=== PATIENT | male | born 1970 | race Caucasian/White ===

== ENCOUNTER 2016-12-31 10:20 | Emergency (ER) | payer OTHER ==
[~2016-12-31] VITALS: Ht 190.5 cm; Wt 113.4 kg
[~2016-12-31 10:20] MED LIST: AMLODIPINE BESY10 MG PO; Aspirin PO; BYSTOLIC10 MG PO; DOCUSATE SODIU100 MG PO; NEXIUM 40MG40 MG PO; PERCOCET 325 MG1 TA2 PO; POLYTRIM O200 GTT/BO OPH; VALIUM5 M1 PO; VICODIN5-300 PO
--- NOTE | 2016-12-31 11:06 | ED GI/GU/ABDOMINAL COMPLAINT ---
History of Present Illness General Chief Complaint: Abdominal Pain/Flank Pain Stated Complaint: "PER CONSITPATED" Source: patient, family, old records Exam Limitations: no limitations Vital Signs & Intake/Output Vital Signs & Intake/Output Vital Signs Date Time Temp Pulse Resp B/P B/P Pulse O2 O2 Flow FiO2 Mean Ox Delivery Rate 12/31 1328 97.8 63 16 128/68 97 Room Air 12/31 1028 98.3 73 16 131/83 98 Room Air Room Air Allergies Coded Allergies: No Known Allergies (12/31/16) Reconcile Medications Amlodipine Besylate 10 MG TABLET 0.5 TAB PO DAILY BP (Reported) Diazepam (Valium) 5 MG TABLET 1 TAB PO TID PRN Spasms Esomeprazole (Nexium) 40 MG CAPSULE.DR 1 TAB PO DAILY GI (Reported) HYDROCODONE/ACETAMINOPHEN (Hydrocodon-Acetaminophen 5-325) 1 TAB TAB 1 TAB PO Q6HR PRN PAIN Nebivolol Hydrochloride (Bystolic) 10 MG TAB 1 TAB PO DAILY BP (Reported) OXYCODONE HCL/ACETAMINOPHEN (Percocet 5-325 MG Tablet) 325 MG/5 MG TAB 1 TAB PO Q4 HRS NEEDED PRN PAIN Polytrim (Polytrim Eye Drops) 200 GTT/BOT GTT 2 GTT OPH Q4HR CORNEAL ABRAISON Triage Note: PT TO TRIAGE WITH LOWER BAD PAIN SINCE SUNDAY. PT HAD LEFT BICEP TEAR REPAIR ON 11/24/16 AND HAS BEEN TAKING PAIN MEDICATION. PT DENIES BLOOD IN STOOL, PT STATES HE FEELS A LITTLE CONSTIPATED Triage Nurses Notes Reviewed? yes HPI: Patient presents with left lower quadrant crampy abdominal pain, bloating and constipation. Symptoms started approximately one week ago. Patient has been on pain medication for his left shoulder. Patient denies any nausea or vomiting. Patient states that he has normal appetite. His pain is crampy in nature and it radiated to the left lower quadrant to the suprapubic area. The pain is constant. The patient rates it as 7 out of 10. There are no aggravating or mitigating factors. Patient denies any dysuria or hematuria. Past History Travel History Traveled to [place] past 21 day No Medical History Any Pertinent Medical History? 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 No Review of Systems Review of Systems Constitutional: Reports: no symptoms. EENTM: Reports: no symptoms. Respiratory: Reports: no symptoms. Cardiovascular: Reports: no symptoms. GI: Reports: see HPI, abdominal pain, bloating, constipation. Genitourinary: Reports: no symptoms. Musculoskeletal: Reports: no symptoms. Skin: Reports: no symptoms. Neurological/Psychological: Reports: no symptoms. Hematologic/Endocrine: Reports: no symptoms. Immunologic/Allergic: Reports: no symptoms. All Other Systems: Reviewed and Negative Physical Exam Physical Exam General Appearance: well developed/nourished, alert, awake, anxious, mild distress Head: atraumatic, normal appearance Eyes: Bilateral: PERRL, EOMI. Ears, Nose, Throat, Mouth: hearing grossly normal, DRY MUCOSA Neck: normal inspection, supple, full range of motion Respiratory: normal breath sounds, chest non-tender, no respiratory distress, lungs clear Cardiovascular: regular rate/rhythm, normal peripheral pulses Gastrointestinal: normal bowel sounds, soft, no organomegaly, tenderness (LLQ), NO REBOUND OR GUARDING Back: normal inspection, normal range of motion Extremities: normal range of motion Neurologic/Psych: no motor/sensory deficits, awake, alert, oriented x 3, normal mood/affect Skin: intact, normal color, warm/dry Core Measures ACS in differential dx? No Severe Sepsis Present: No Septic Shock Present: No Progress Differential Diagnosis: bowel obstruction, diverticulitis, ischemic bowel, inflamm bowel dis, prostatitis, SBO Plan of Care: Orders Procedure Date/time Status LIPASE 12/31 1032 Complete HIGH SENSITIVITY CRP 12/31 1032 Complete URINALYSIS 12/31 1029 Complete COMPREHENSIVE METABOLIC PANEL 12/31 1029 Complete CBC WITHOUT DIFFERENTIAL 12/31 1029 Complete Laboratory Tests 12/31/16 1044: Urine Color YEL, Urine Clarity CLEAR, Urine pH 6.0, Ur Specific Turney 1.025, Urine Protein NEG, Urine Ketones NEG, Urine Nitrite NEG, Urine Bilirubin NEG, Urine Urobilinogen 0.2, Ur Leukocyte Esterase NEG, Ur Microscopic EXAM NOT REQUIRED, Urine Hemoglobin NEG, Urine Glucose NEG 12/31/16 1032: Anion Gap 12, Estimated GFR > 60, BUN/Creatinine Ratio 15.0, Glucose 90, Calcium 9.9, Total Bilirubin 0.9, AST 26, ALT 49, Alkaline Phosphatase 56, C-React Prot High Sens 13.2 H, Total Protein 8.2, Albumin 4.6, Globulin 3.6, Albumin/ Globulin Ratio 1.3, Lipase 186, CBC w Diff NO MAN DIFF REQ, RBC 5.02, MCV 90.2, MCH 30.6, RDW 13.1, MPV 8.4, Gran % 46.9, Lymphocytes % 35.4, Monocytes % 15.1 H, Eosinophils % 2.2, Basophils % 0.4, Absolute Granulocytes 3.0, Absolute Lymphocytes 2.3, Absolute Monocytes 1.0 H, Absolute Eosinophils 0.1, Absolute Basophils 0, PUBS MCHC 33.9 12/31/16 1031: C-React Prot High Sens Cancelled, Lipase Cancelled Diagnostic Imaging: Viewed by Me: CT Scan. Discussed w/RAD: CT Scan. Radiology Impression: PATIENT: GERMAIN DENTON PRESENT AGE: 46 PATIENT ACCOUNT NO: [id number] : 68 LOCATION: [facility] ORDERING PHYSICIAN: ULISSES QIU MD SERVICE DATE: 12/31/16 EXAM TYPE: CAT - CT ABD & PELVIS W IV CONTRAST EXAMINATION: CT ABDOMEN AND PELVIS WITH CONTRAST CLINICAL INFORMATION: 46-year-old male presented with left lower quadrant abdominal pain, and bloating. COMPARISON: CT of the abdomen and pelvis done on 06/21/2009. TECHNIQUE: Multidetector volumetric imaging was performed of the abdomen and pelvis before and after the IV administration of 95 mL of Optiray 320 intravenous contrast. Sagittal and coronal reformatted images were obtained on the technologist's workstation. DLP: 1151.58 mGy-cm. FINDINGS: LUNG BASES: The visualized lung bases are unremarkable. LIVER, GALLBLADDER, AND BILIARY TREE: Mild diffuse hepatic hypodensity consistent with hepatic steatosis is noted. No superimposed discrete intrahepatic focal abnormalities present. The gallbladder is unremarkable with no evidence of radiopaque gallstones, gallbladder wall thickening, or obvious pericholecystic inflammatory changes. PANCREAS: Unremarkable. SPLEEN: Unremarkable. ADRENAL GLANDS: Unremarkable. KIDNEYS AND URETERS: The kidneys are normal in size, shape, and attenuation. No hydronephrosis, hydroureter, or calculi seen. No perinephric stranding. BLADDER: Unremarkable. GASTROINTESTINAL TRACT: Colonic diverticulosis related changes are noted within the sigmoid colon without any CT features of superimposed acute diverticulitis. There are no colonic or small bowel inflammatory changes present. There are no features of bowel obstruction seen. The appendix is not visualized however, there are no inflammatory changes noted at right lower quadrant of the abdomen. There is no pathologically enlarged mesenteric lymphadenopathy present. ABDOMINAL WALL: No significant hernia is appreciated. LYMPH NODES: No pathologically enlarged retroperitoneal, pelvic and/or groin lymphadenopathy present. VASCULAR: Unremarkable. PELVIC VISCERA: Multiple phleboliths are present. There is no pelvic mass present. There is no free fluid and/or free air present. OSSEOUS STRUCTURES: No suspicious lytic or sclerotic abnormality is present. IMPRESSION: No CT evidence of any acute intra-abdominal and/or intrapelvic pathology is present. Colonic diverticulosis is noted without any CT evidence of superimposed acute diverticulitis. DICTATED BY: ALIZA RANDOLPH MD DATE/TIME DICTATED:12/31/161233 SIZE CUTTER:ДМИТРИЙ DATE/ TIME TRANSCRIBED:12/31/161233 CONFIDENTIAL, DO NOT COPY WITHOUT APPROPRIATE AUTHORIZATION. <Electronically signed in Other Vendor System> SIGNED BY: ALIZA RANDOLPH MD 12/31/16 1330 Initial ED EKG: none Comments: Labs and CAT scan results discussed with the patient and his . Question up and answered. Departure Departure Disposition: HOME OR SELF CARE Condition: Stable Clinical Impression Primary Impression: Constipation Qualifiers: Constipation type: unspecified constipation type Qualified Code: K59.00 - Constipation, unspecified Secondary Impressions: Lower abdominal pain, unspecified Referrals: PEGGY RICHARD,LAMONT Srinivasan (PCP/Family) Additional Instructions: DRINK PLENTY OF FLUIDS REUTRN FOR ANY CONCERNS Departure Forms: Customer Survey General Discharge Information Prescriptions: Current Visit Scripts Polyethylene Glycol 3350 (Miralax) 1 PAC PO DAILY #5 PAC dissolve in water Hyoscyamine (Levsin) 1 TAB PO Q4 PRN ABDOMINAL PAIN #20 TAB
[2016-12-31 11:20] LABS: ABSOLUTE BASOPHIL COUNT 0 /CUMM (0.0-0.2); ABSOLUTE EOSINOPHIL COUNT 0.1 /CUMM (0.0-0.7); ABSOLUTE LYMPH COUNT 2.3 /CUMM (1.2-3.4); BASOPHIL % 0.4 % (0.0-2.0); EOSINOPHIL % 2.2 % (0-5); GRANULOCYTE % 46.9 % (42.2-75.2); HEMATOCRIT 45.3 % (42-52); MEAN CORPUSCULAR HGB 30.6 PG (27.0-31.0); MEAN CORPUSCULAR HGB CONC 33.9 G/DL (33.0-37.0); MEAN CORPUSCULAR VOLUME 90.2 FL (80.0-94.0); MEAN PLATELET VOLUME 8.4 FL (7.4-10.4); PLATELET COUNT 272 /CUMM (130-400); RBC DISTRIBUTION WIDTH 13.1 % (11.5-14.5); RED BLOOD CELL CT 5.02 /CUMM (4.70-6.10); WHITE BLOOD CELL COUNT 6.5 /CUMM (4.8-10.8)
[2016-12-31 13:28] VITALS: BP 128/68
--- NOTE | 2016-12-31 13:30 | CT SCAN REPORT ---
EXAMINATION: CT ABDOMEN AND PELVIS WITH CONTRAST CLINICAL INFORMATION: 46-year-old male presented with left lower quadrant abdominal pain, and bloating. COMPARISON: CT of the abdomen and pelvis done on 06/21/2009. TECHNIQUE: Multidetector volumetric imaging was performed of the abdomen and pelvis before and after the IV administration of 95 mL of Optiray 320 intravenous contrast. Sagittal and coronal reformatted images were obtained on the technologist's workstation. DLP: 1151.58 mGy-cm. FINDINGS: LUNG BASES: The visualized lung bases are unremarkable. LIVER, GALLBLADDER, AND BILIARY TREE: Mild diffuse hepatic hypodensity consistent with hepatic steatosis is noted. No superimposed discrete intrahepatic focal abnormalities present. The gallbladder is unremarkable with no evidence of radiopaque gallstones, gallbladder wall thickening, or obvious pericholecystic inflammatory changes. PANCREAS: Unremarkable. SPLEEN: Unremarkable. ADRENAL GLANDS: Unremarkable. KIDNEYS AND URETERS: The kidneys are normal in size, shape, and attenuation. No hydronephrosis, hydroureter, or calculi seen. No perinephric stranding. BLADDER: Unremarkable. GASTROINTESTINAL TRACT: Colonic diverticulosis related changes are noted within the sigmoid colon without any CT features of superimposed acute diverticulitis. There are no colonic or small bowel inflammatory changes present. There are no features of bowel obstruction seen. The appendix is not visualized however, there are no inflammatory changes noted at right lower quadrant of the abdomen. There is no pathologically enlarged mesenteric lymphadenopathy present. ABDOMINAL WALL: No significant hernia is appreciated. LYMPH NODES: No pathologically enlarged retroperitoneal, pelvic and/or groin lymphadenopathy present. VASCULAR: Unremarkable. PELVIC VISCERA: Multiple phleboliths are present. There is no pelvic mass present. There is no free fluid and/or free air present. OSSEOUS STRUCTURES: No suspicious lytic or sclerotic abnormality is present. IMPRESSION: No CT evidence of any acute intra-abdominal and/or intrapelvic pathology is present. Colonic diverticulosis is noted without any CT evidence of superimposed acute diverticulitis.
[2016-12-31] MEDS ORDERED: MIRALAX17 G1 PO (13:36)
[2016-12-31] MEDS ORDERED: LEVSIN0.125 M1 PO (13:36)
== END 2016-12-31 13:43 ==
LOC: ERH 10:20
PROVIDERS: Emergency Medicine
DX: K59.00 Constipation, unspecified (principal)
CPT/HCPCS: 74177; 81003; 96361; 96374; J1885

== ENCOUNTER 2017-01-03 16:15 | Emergency (ER) | payer OTHER ==
[~2017-01-03] VITALS: Ht 190.5 cm; Wt 113.4 kg
[~2017-01-03 16:15] MED LIST changes: +LEVSIN0.125 M1 PO; +MIRALAX17 G1 PO
--- NOTE | 2017-01-03 18:26 | ED GI/GU/ABDOMINAL COMPLAINT ---
History of Present Illness General Chief Complaint: Abdominal Pain/Flank Pain Stated Complaint: ABD PAIN SEEN SUNDAY Source: patient Exam Limitations: no limitations Vital Signs & Intake/Output Vital Signs & Intake/Output Vital Signs Date Time Temp Pulse Resp B/P B/P Pulse O2 O2 Flow FiO2 Mean Ox Delivery Rate 01/04 2056 98.2 77 18 125/77 97 Room Air 01/03 1846 98.4 76 20 129/79 96 Room Air 01/03 1634 98.5 89 16 124/79 97 Room Air ED Intake and Output 01/04 0000 01/03 1200 Intake Total Output Total Balance Patient 250 lb Weight Weight Reported by Patient Measurement Method Allergies Coded Allergies: No Known Allergies (12/31/16) Reconcile Medications Amlodipine Besylate 10 MG TABLET 0.5 TAB PO DAILY BP (Reported) Diazepam (Valium) 5 MG TABLET 1 TAB PO TID PRN Spasms Esomeprazole (Nexium) 40 MG CAPSULE.DR 1 TAB PO DAILY GI (Reported) HYDROCODONE/ACETAMINOPHEN (Hydrocodon-Acetaminophen 5-325) 1 TAB TAB 1 TAB PO Q6HR PRN PAIN Hyoscyamine (Levsin) 0.125 MG TABLET 1 TAB PO Q4 PRN ABDOMINAL PAIN Magnesium Citrate (Citrate Of Magnesia) 300 ML SOLUTION 296 ML PO ONCE PRN CONSTIPATION Nebivolol Hydrochloride (Bystolic) 10 MG TAB 1 TAB PO DAILY BP (Reported) OXYCODONE HCL/ACETAMINOPHEN (Percocet 5-325 MG Tablet) 325 MG/5 MG TAB 1 TAB PO Q4 HRS NEEDED PRN PAIN Peg 3350/Na Sulf,Bicarb,Cl/KCl (Golytely Packet) 227.1-21.5 POWD.PACK 1 PAC PO ONCE PRN CONSTIPATION MIX PACKET WITH 6-8 OZ OF WATER FOR CONSTIPATION Polyethylene Glycol 3350 (Miralax) 17 GRAM POWD.PACK 1 PAC PO DAILY CONSTIPATION dissolve in water Polytrim (Polytrim Eye Drops) 200 GTT/BOT GTT 2 GTT OPH Q4HR CORNEAL ABRAISON Triage Note: PT STATES HE WAS SEEN HERE SUNDAY FOR LOWER ABD PAIN. PT STATES THE PAIN HAS GOTTEN WORSE. PT WAS GIVEN PILLS AND MIRILAX AND STATES HE STILL CAN'T MOVE HIS BOWELS. Triage Nurses Notes Reviewed? yes Onset: Gradual Duration: constant Timing: recent history Quality/Severity: sharpness, severe, stabbing Severity Numbers: 8 Activities at Onset: none HPI: Patient is a 46-year-old male past medical history of hypertension who presents emergency room with concerns of persistent abdominal pain and minimal bowel movements 1 week where he was evaluated 3 days ago in [place] emergency room for similar complaints as present today and which he received blood work and CT scan remarkable only for constipation. Patient was given bowel promotion medications with no improvement of the symptoms patient had minimal nonbloody nonbilious emesis today. (IRMA PAPPAS) Past History Travel History Traveled to [place] past 21 day No Medical History Any Pertinent Medical History? 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 No (IRMA PAPPAS) Review of Systems Review of Systems Constitutional: Reports: no symptoms. EENTM: Reports: no symptoms. Respiratory: Reports: no symptoms. Cardiovascular: Reports: no symptoms. GI: Reports: see HPI, abdominal pain. Genitourinary: Reports: no symptoms. Musculoskeletal: Reports: no symptoms. Skin: Reports: no symptoms. Neurological/Psychological: Reports: no symptoms. Hematologic/Endocrine: Reports: no symptoms. Immunologic/Allergic: Reports: no symptoms. All Other Systems: Reviewed and Negative (IRMA PAPPAS) Physical Exam Physical Exam General Appearance: no apparent distress, alert, comfortable Gastrointestinal: normal bowel sounds, soft, SUPRAPUBIC PAIN Comments: Well-developed well-nourished person in no acute distress HEENT: Normal EENT exam, Neck: Supple, no lymphadenopathy, normal range of motion without pain or tenderness Back: Nontender, no CVA tenderness. Cardiovascular: Regular rate and rhythms no murmurs rubs or gallops, normal JVP Respiratory: Chest nontender. No respiratory distress.breath sounds clear to auscultation bilaterally Extremity: No edema, no calf tenderness to palpation, normal and equal pulses. Neuro: Alert oriented x3, motor sensory normal, Skin: No appreciable rash on exposed skin, skin is warm and dry. Psych: Mood and affect is normal, memory and judgment is normal. Core Measures ACS in differential dx? No Severe Sepsis Present: No Septic Shock Present: No (ERIK LARSON,IRMA) Progress Differential Diagnosis: AAA, AMI, appendicitis, biliary colic, bowel obstruction , colon cancer, cholecystitis, diverticulitis, epididymitis, esophageal varices, gastritis, hepatitis, hernia, hemorrhoids, ischemic bowel, inflamm bowel dis, Rama-Misbah tear, orchitis, pancreatitis, prostatitis, peptic ulcer, PUD/GERD, perforated viscous, pyelonephritis, SBO, STD, testicular torsion, ureterolithiasis, urinary retention, urethritis, UTI/pyelo, CONSTIPATION Plan of Care: Orders Procedure Date/time Status Enema 01/03 1854 Active URINE DRUG SCREEN FOR ER ONLY 01/03 1851 Complete URINALYSIS 01/03 1851 Complete LIPASE 01/04 1704 Complete COMPREHENSIVE METABOLIC PANEL 01/04 1704 Complete CBC WITHOUT DIFFERENTIAL 01/04 1704 Complete AMYLASE 01/04 1704 Complete Current Medications Sig/Brendan Start time Last Medication Dose Stop Time Status Admin Ketorolac 30 MG ONCE ONE 01/03 1900 CAN Tromethamine 01/03 190 (Toradol) Laboratory Tests 01/03/171952: Urine Opiates Screen < 100.00, Methadone Screen < 40, Barbiturate Screen < 60, Ur Phencyclidine Scrn < 6.00, Amphetamines Screen < 100, U Benzodiazepines Scrn < 85, Urine Cocaine Screen < 50, Urine Cannabis Screen > 80.00 H, Urine Color YEL, Urine Clarity CLEAR, Urine pH 6.0, Ur Specific Stanton 1.020, Urine Protein NEG, Urine Ketones NEG, Urine Nitrite NEG, Urine Bilirubin NEG, Urine Urobilinogen 0.2, Ur Leukocyte Esterase NEG, Ur Microscopic EXAM NOT REQUIRED, Urine Hemoglobin NEG, Urine Glucose NEG 01/03/17 182: Anion Gap 12, Estimated GFR > 60, BUN/Creatinine Ratio 13.0, Glucose 89, Calcium 9.4, Total Bilirubin 0.9, AST 21, ALT 33, Alkaline Phosphatase 51, Total Protein 7.6, Albumin 4.4, Globulin 3.2, Albumin/Globulin Ratio 1.4, Amylase 36, Lipase 117, CBC w Diff NO MAN DIFF REQ, RBC 4.84, MCV 90.5, MCH 30.0, RDW 13.0, MPV 8.4 , Gran % 59.9, Lymphocytes % 24.2, Monocytes % 14.6 H, Eosinophils % 0.9, Basophils % 0.4, Absolute Granulocytes 5.6, Absolute Lymphocytes 2.3, Absolute Monocytes 1.4 H, Absolute Eosinophils 0.1, Absolute Basophils 0, PUBS MCHC 33.2 Patient currently at bedside was in no apparent distress blood work was reviewed with patient unremarkable findings. X-ray was unremarkable for obstruction patient currently resting at bedside and I discussed patient that most likely his symptoms are due to constipation due to previous records of CT scan 3 days ago. I discussed with patient of increasing physical activity levels increase dietary fiber and plenty of water and begin prescriptions for bowel promotion. Upon discharge patient looks well no apparent distress was able tolerate by mouth and will comply with discharge instructions and had no questions Patient has no concerns of appendicitis and no right lower quadrant pain (IRMA PAPPAS) Diagnostic Imaging: Viewed by Me: Radiology Read. Radiology Impression: no acute abnormality Initial ED EKG: none Comments: PATIENT: GERMAIN DENTON PRESENT AGE: 46 PATIENT ACCOUNT NO: [id number] : 66 LOCATION: [facility] ORDERING PHYSICIAN: IRMA LARSON SERVICE DATE: 01/03/17 EXAM TYPE: RAD - [id number] VIEW EXAMINATION: XR ABDOMEN CLINICAL INDICATION: 46-year-old male patient with constipation and abdominal pain. COMPARISON: CT of the abdomen and pelvis on 12/31/2016. (No acute). TECHNIQUE: AP supine view of the abdomen. 2 exposures FINDINGS: The bowel gas pattern is normal with no evidence of ileus or obstruction. No unusual soft tissue calcifications are noted. The bones and soft tissues are unremarkable IMPRESSION: Unremarkable examination. DICTATED BY: DAVEY VALADEZ MD DATE/TIME DICTATED:01/03/171935 (IRMA PAPPAS) Departure Departure Disposition: HOME OR SELF CARE Condition: Stable Clinical Impression Primary Impression: Constipation Secondary Impressions: Abdominal pain Referrals: PEGGY RICHARD,LAMONT Srinivasan (PCP/Family) Additional Instructions: As discussed begin drinking plenty of water and a high fiber diet. Begin over- the-counter stool softener and begin the prescription of magnesium citrate for constipation and GoLYTELY for breakthrough constipation relief. If symptoms worsen return to the emergency room. Prescription is waiting a [facility] pharmacy. Follow up with your established gastrologist IN TWO DAYS IF NO BETTER Departure Forms: Customer Survey General Discharge Information Prescriptions: Current Visit Scripts Magnesium Citrate (Citrate Of Magnesia) 296 ML PO ONCE PRN CONSTIPATION #296 ML Ref 1 Peg 3350/Na Sulf,Bicarb,Cl/KCl (Golytely Packet) 1 PAC PO ONCE PRN CONSTIPATION #1 PAC MIX PACKET WITH 6-8 OZ OF WATER FOR CONSTIPATION (ERIK LARSON,IRMA) PA/EDUCATION INTERN Co-Sign Statement Statement: ED Attending supervision documentation- [] I saw and evaluated the patient. I have also reviewed all the pertinent lab results and diagnostic results. I agree with the findings and the plan of care as documented in the PA's/EDUCATION INTERN's documentation. [X] I have reviewed the ED Record and agree with the PA's/EDUCATION INTERN's documentation. [] Additions or exceptions (if any) to the PAs/EDUCATION INTERN's note and plan are summarized below: [] (ANGELINA RICHARD,DANIS)
[2017-01-03 18:57] LABS: ABSOLUTE BASOPHIL COUNT 0 /CUMM (0.0-0.2); ABSOLUTE EOSINOPHIL COUNT 0.1 /CUMM (0.0-0.7); ABSOLUTE GRANULOCYTE CT 5.6 /CUMM (1.4-6.5); ABSOLUTE LYMPH COUNT 2.3 /CUMM (1.2-3.4); ABSOLUTE MONOCYTE COUNT 1.4 /CUMM (0.10-0.60); BASOPHIL % 0.4 % (0.0-2.0); EOSINOPHIL % 0.9 % (0-5); GRANULOCYTE % 59.9 % (42.2-75.2); HEMATOCRIT 43.8 % (42-52); MEAN CORPUSCULAR HGB CONC 33.2 G/DL (33.0-37.0); MEAN CORPUSCULAR VOLUME 90.5 FL (80.0-94.0); MEAN PLATELET VOLUME 8.4 FL (7.4-10.4); PLATELET COUNT 292 /CUMM (130-400); RED BLOOD CELL CT 4.84 /CUMM (4.70-6.10); WHITE BLOOD CELL COUNT 9.3 /CUMM (4.8-10.8)
--- NOTE | 2017-01-03 19:41 | RADIOLOGY REPORT ---
EXAMINATION: XR ABDOMEN CLINICAL INDICATION: 46-year-old male patient with constipation and abdominal pain. COMPARISON: CT of the abdomen and pelvis on 12/31/2016. (No acute). TECHNIQUE: AP supine view of the abdomen. 2 exposures FINDINGS: The bowel gas pattern is normal with no evidence of ileus or obstruction. No unusual soft tissue calcifications are noted. The bones and soft tissues are unremarkable IMPRESSION: Unremarkable examination.
[2017-01-03] MEDS ORDERED: CITRATE OF MAG300 ML PO (20:40)
[2017-01-03] MEDS ORDERED: GOLYTELY PACKE1 EACH PO (20:40)
[2017-01-03 20:56] VITALS: BP 125/77
== END 2017-01-03 20:57 ==
LOC: ERH 16:15
PROVIDERS: Physician Assistant Medical
DX: K59.00 Constipation, unspecified (principal)
CPT/HCPCS: 74000; 80307; 81003; 96372; J1885